=== PATIENT | female | born 1995 | race Caucasian/White ===

== ENCOUNTER → 2017-02-26 | Outpatient (CLI) | payer SELFPAY ==
[~2017-02-26] MED LIST: AMOXICILLIN500 MG PO; AUGMENTIN 875-875 MG PO; BACTRIM DS 8001 TA1 PO; BIAXIN500 MG PO; CLARITIN10 MG PO; COMBIVENT1 ARO IH; DARVOCET N 1001 TAB PO; DELTASONE10 MG PO; DIFLUCAN150 MG PO; FLONASE 0.05% 121 EA NAS; HYDROCODONE BIT1 T11 PO; HYDROCORTISONE30 G2 PO; IBU-8800 MG PO; MEDROL DOSEPAK4 MG PO; MOBIC15 MG PO; MOTRIN600 MG PO; MOTRIN800 MG PO; Motrin,Rufen800 MG PO; NAPROSYN250 MG PO; NKHM; NKHM PO; PHENERGAN W/DM120 ML PO; PNV PRENATAL HE1 TAB PO; PRENATAL1 TA3 PO; PROAIR HFA0.09 MG/AC IH; PYRIDIUM200 MG PO; ROBAXIN750 MG PO; TOBRADEX 0.1%-01 OI1 OP; TRAMADOL HCL50 MG PO; TRIAMCINOLONE AC0.1% T; TYLENOL COLD &1 PDR PO; ULTRAM50 MG PO; ZITHROMAX Z PA250 MG PO; ZOFRAN4 MG; ZOFRAN4 MG PO; ZOVIRAX800 MG PO
== END | disposition home or self-care (01) ==
LOC: RESCLI 02:49
DX: Z13.9 Encounter for screening, unspecified (principal); I10 Essential (primary) hypertension; R00.0 Tachycardia, unspecified; E66.01 Morbid (severe) obesity due to excess calories

== ENCOUNTER 2019-05-02 20:08 | Emergency (ER) | payer OTHER ==
[~2019-05-02] VITALS: Wt 121.4 kg
[2019-05-02 20:11] VITALS: BP 147/85
[2019-05-02 20:25] LABS: BILIRUBIN NEGATIVE (NEGATIVE); BLOOD NEGATIVE (NEGATIVE); CLARITY SL CLOUDY (CLEAR); COLOR YELLOW (YELLOW); GLUCOSE NEGATIVE (NEGATIVE); KETONE NEGATIVE (NEGATIVE); LEUKO ESTERASE NEGATIVE (NEGATIVE); NITRITE NEGATIVE (NEGATIVE); UROBILINOGEN 0.2 E.U./dl (0.2-1.0)
[2019-05-02 20:33] LABS: URINE AMPHETAMINES < 1000 (1000ng/ml); URINE BARBITURATES < 200 (200ng/ml); URINE BENZODIAZEPINES < 200 (200ng/ml); URINE CANNABINOIDS (THC) > 50 (50ng/ml); URINE COCAINE < 300 (300ng/ml); URINE METHADONE < 300 (300ng/ml); URINE OPIATES < 300 (300ng/ml); URINE PHENCYCLIDINE < 25 (25ng/ml)
[2019-05-02 20:36] LABS: EPITHELIAL CELLS 40-45
[2019-05-02 20:37] LABS: BACTERIA TRACE; WBC 0-2 wbc/hpf (0-5)
[2019-05-02 20:40] LABS: BASO % 0.4 % (0.0-1.0); EOS # 0.1 10*3/uL (0.0-0.4); EOS % 1.3 % (1.0-4.0); HEMATOCRIT 40.4 % (37.0-47.0); HEMOGLOBIN 12.6 g/dl (12.0-16.0); LYMPH % 28.4 % (27.0-41.0); MEAN CELL VOLUME 84.3 fl (81.0-99.0); MEAN CORPUSCULAR HGB 26.3 pg (27.0-31.0); MEAN CORPUSCULAR HGB CONC 31.2 g/dl (33.0-37.0); MEAN PLATELET VOLUME 10.4 fl (9.6-12.3); MONO # 0.9 10*3/uL (0.1-1.0); MONO % 8.3 % (3.0-9.0); NEUT # 6.6 10*3/uL (2.3-7.9); NEUT % 61.3 % (47.0-73.0); PLATELET COUNT AUTOMATED 286 10*3/uL (130-400); RED BLOOD COUNT 4.79 10*6/uL (4.10-5.10); RED CELL DISTRI WIDTH 15.5 % (0-14.5); WHITE BLOOD COUNT 10.7 10*3/uL (4.8-10.8)
[2019-05-02 20:55] LABS: ALBUMIN 3.3 gm/dl (3.1-4.5); ALKALINE PHOSPHATASE 71 U/L (45-117); BUN 10 mg/dl (7-24); CHLORIDE 109 mmol/L (98-107); LIPASE 104 U/L (73-393); POTASSIUM 3.7 mmol/L (3.5-5.1); SGOT/AST 15 IU/L (3-35); SGPT/ALT 23 U/L (12-78); SODIUM 140 mmol/L (136-145); TOTAL PROTEIN 7.3 gm/dL (6.4-8.2)
[2019-05-02] MEDS ORDERED: Phenergan25 MG PO (21:28)
== END 2019-05-02 21:31 | disposition home or self-care (01) ==
LOC: ED 20:08
PROVIDERS: Emergency Medicine Emergency Medical Services
DX: O99.611 Diseases of the digestive system complicating pregnancy, first trimester (principal); K52.9 Noninfective gastroenteritis and colitis, unspecified; R42 Dizziness and giddiness; Z3A.00 Weeks of gestation of pregnancy not specified; Z79.899 Other long term (current) drug therapy

== ENCOUNTER 2019-10-10 16:04 | Emergency (ER) | payer OTHER ==
[~2019-10-10] VITALS: Ht 160 cm; Wt 122.5 kg
[2019-10-10 16:04] VITALS: BP 122/63
[~2019-10-10 16:04] MED LIST changes: +Phenergan25 MG PO
[2019-10-10 16:49] LABS: BASO % 0.2 % (0.0-1.0); EOS # 0.2 10*3/uL (0.0-0.4); EOS % 1.9 % (1.0-4.0); HEMATOCRIT 35.9 % (37.0-47.0); HEMOGLOBIN 11.4 g/dl (12.0-16.0); LYMPH # 1.9 10*3/uL (1.3-4.4); LYMPH % 22.8 % (27.0-41.0); MEAN CORPUSCULAR HGB 29.8 pg (27.0-31.0); MEAN CORPUSCULAR HGB CONC 31.8 g/dl (33.0-37.0); MEAN PLATELET VOLUME 11.1 fl (9.6-12.3); MONO % 11.8 % (3.0-9.0); NEUT # 5.2 10*3/uL (2.3-7.9); NEUT % 62.5 % (47.0-73.0); PLATELET COUNT AUTOMATED 219 10*3/uL (130-400); RED BLOOD COUNT 3.82 10*6/uL (4.10-5.10); WHITE BLOOD COUNT 8.3 10*3/uL (4.8-10.8)
[2019-10-10 16:49] LABS: BILIRUBIN NEGATIVE (NEGATIVE); BLOOD NEGATIVE (NEGATIVE); CLARITY CLOUDY (CLEAR); COLOR YELLOW (YELLOW); GLUCOSE NEGATIVE (NEGATIVE); KETONE NEGATIVE (NEGATIVE); LEUKO ESTERASE 1+ (NEGATIVE); NITRITE NEGATIVE (NEGATIVE); SPECIFIC GRAVITY 1.025 (1.005-1.030); UROBILINOGEN 0.2 E.U./dl (0.2-1.0)
[2019-10-10 16:57] LABS: BACTERIA 1+; EPITHELIAL CELLS 21-30
[2019-10-10 17:08] LABS: ALBUMIN 2.6 gm/dl (3.1-4.5); ALKALINE PHOSPHATASE 95 U/L (45-117); BUN 9 mg/dl (7-24); CHLORIDE 111 mmol/L (98-107); CREATININE 0.55 mg/dL (0.55-1.02); LIPASE 124 U/L (73-393); POTASSIUM 3.8 mmol/L (3.5-5.1); SGOT/AST 18 IU/L (3-35); SGPT/ALT 14 U/L (12-78); SODIUM 141 mmol/L (136-145); TOTAL PROTEIN 6.3 gm/dL (6.4-8.2)
[2019-10-10] MEDS ORDERED: PROAIR HFA8.5 GM INH (17:29)
[2019-10-10] MEDS ORDERED: TAMIFLU 75MG CA75 MG PO (17:29)
[2019-10-10] MEDS ORDERED: AMOXICILLIN500 M3 PO (17:29)
== END 2019-10-10 17:40 | disposition home or self-care (01) ==
LOC: ED 16:04
PROVIDERS: Physician Assistant
DX: O98.513 Other viral diseases complicating pregnancy, third trimester (principal); O99.513 Diseases of the respiratory system complicating pregnancy, third trimester; J06.9 Acute upper respiratory infection, unspecified; O23.93 Unspecified genitourinary tract infection in pregnancy, third trimester; O99.333 Smoking (tobacco) complicating pregnancy, third trimester; Z3A.31 31 weeks gestation of pregnancy; Z79.899 Other long term (current) drug therapy

== ENCOUNTER 2019-12-04 22:45 | Inpatient (IN) | payer OTHER ==
[~2019-12-04] VITALS: Ht 160 cm; Wt 125.8 kg
[~2019-12-04 22:45] MED LIST changes: +AMOXICILLIN500 M3 PO; +PROAIR HFA8.5 GM INH; +TAMIFLU 75MG CA75 MG PO
[2019-12-04 22:51] VITALS: BP 142/82
[2019-12-04] MEDS ORDERED: SERTRALINE HYD100 MG PO (23:42)
[2019-12-05] VITALS (9 sets, daily range): BP systolic 99–134; BP diastolic 41–88
[2019-12-05 00:02] LABS: BASO # 0.1 10*3/uL (0.0-0.1); BASO % 0.5 % (0.0-1.0); EOS # 0.2 10*3/uL (0.0-0.4); EOS % 1.8 % (1.0-4.0); HEMATOCRIT 42.9 % (37.0-47.0); HEMOGLOBIN 13.9 g/dl (12.0-16.0); LYMPH # 4.7 10*3/uL (1.3-4.4); LYMPH % 39.7 % (27.0-41.0); MEAN CELL VOLUME 92.1 fl (81.0-99.0); MEAN CORPUSCULAR HGB 29.8 pg (27.0-31.0); MEAN CORPUSCULAR HGB CONC 32.4 g/dl (33.0-37.0); MEAN PLATELET VOLUME 11.2 fl (9.6-12.3); MONO # 0.8 10*3/uL (0.1-1.0); MONO % 6.6 % (3.0-9.0); NEUT % 51.1 % (47.0-73.0); PLATELET COUNT AUTOMATED 340 10*3/uL (130-400); RED BLOOD COUNT 4.66 10*6/uL (4.10-5.10); RED CELL DISTRI WIDTH 13.1 % (0-14.5); WHITE BLOOD COUNT 11.8 10*3/uL (4.8-10.8)
[2019-12-05 00:14] LABS: ALBUMIN 3.4 gm/dl (3.1-4.5); ALKALINE PHOSPHATASE 86 U/L (45-117); BUN 10 mg/dl (7-24); CHLORIDE 109 mmol/L (98-107); CREATININE 0.87 mg/dL (0.55-1.02); POTASSIUM 3.7 mmol/L (3.5-5.1); SGOT/AST 14 IU/L (3-35); SGPT/ALT 25 U/L (12-78); SODIUM 139 mmol/L (136-145); TOTAL PROTEIN 7.2 gm/dL (6.4-8.2)
--- NOTE | 2019-12-05 03:43 | NUR ---
INFUSION OF CLEOCIN INITIATED.NS CONTINUES TO INFUSEL.PT REQUESTING TO GO OUTSIDE TO SMOKE.PT ADVISED THIS IS NON SMOKING FACILITY AND SHE CANNOT LEAVE UNIT WITH IV.PT PROVIDED NICODERM PATCH ON LEFT UPPER ARM.
--- NOTE | 2019-12-05 03:45 | NUR ---
PT PROVIDED PERIPAD.
--- NOTE | 2019-12-05 04:13 | NUR ---
PHOTO TAKEN OF CELLULITIS/ABSCESS ON ABDOMEN.
--- NOTE | 2019-12-05 04:22 | NUR ---
MD GAMBINO CALLED AND STATES SHE PLACED CONSULT FOR DR GUILLORY AND ADVISES TO WAIT UNTIL AM SHIFT TO CONTACT DR GUILLORY.
--- NOTE | 2019-12-05 04:43 | NUR ---
INFUSION OF NS AND CLEOCIN COMPLETED.
--- NOTE | 2019-12-05 04:52 | NUR ---
INFUSION OF ZOSYN INITIATED.PT UPDATED ON CURRENT PLAN OF CARE.PT ADVISED SHE IS CURRENTLY UNABLE TO HAVE FOOD OR DRINK AT THIS TIME.
--- NOTE | 2019-12-05 07:15 | NUR ---
DR GUILLORY AWARE OF PT CONSULT.
--- NOTE | 2019-12-05 07:52 | NUR ---
PROVIDED SMOKELESS TOBACCO PEN REQUESTED.
--- NOTE | 2019-12-05 08:20 | NUR ---
VISITING WITH SPOUSE AND IN ROOM.
--- NOTE | 2019-12-05 09:08 | NUR ---
CUDDLING IN BED.
--- NOTE | 2019-12-05 09:35 | NUR ---
MED REC UPDATED, PT STATES SHE ONLY TAKES ZOLOFT.
--- NOTE | 2019-12-05 09:47 | NUR ---
INSTRUCTED TO PROVIDED URINE SPECIMIN FOR TEST.
--- NOTE | 2019-12-05 10:59 | NUR ---
Time: 1044 A 24 year old FEMALE admitted to 5E under services of YAAKOV CAMPBELL DO. Pt. arrived via wheel chair from ER. Chief complaint: ABCESS OR CELLULITS OF UMBILLICUS. STACY HOPE
--- NOTE | 2019-12-05 20:00 | NUR ---
AAOX3 SITTING UP IN BED. IV ANTIBIOTIC INFUSING AT THIS TIME. PT. REQUESTING PAIN MEDICATION; INFORMED PATIENT THAT IT WAS TOO SOON. PT. VERBALIZED UNDERSTANDING. CALL LIGHT WITHIN REACH.
--- NOTE | 2019-12-05 21:26 | NUR ---
MEDICATED WITH NORCO FOR C/O ABDOMINAL PAIN.
--- NOTE | 2019-12-05 22:12 | NUR ---
MEDICATED WITH RESTORIL FOR C/O INSOMNIA.
[2019-12-06] VITALS: BP 115/55
--- NOTE | 2019-12-06 | NUR ---
PT. APPEARS TO BE SLEEPING; MEDICATION EFFECTIVE.
[2019-12-06 06:50] LABS: BASO % 0.3 % (0.0-1.0); EOS % 0.1 % (1.0-4.0); HEMATOCRIT 42.8 % (37.0-47.0); HEMOGLOBIN 13.6 g/dl (12.0-16.0); LYMPH # 1.9 10*3/uL (1.3-4.4); MEAN CELL VOLUME 94.3 fl (81.0-99.0); MEAN CORPUSCULAR HGB CONC 31.8 g/dl (33.0-37.0); MEAN PLATELET VOLUME 11.9 fl (9.6-12.3); MONO # 0.6 10*3/uL (0.1-1.0); MONO % 5.9 % (3.0-9.0); NEUT # 8.3 10*3/uL (2.3-7.9); NEUT % 76.2 % (47.0-73.0); PLATELET COUNT AUTOMATED 333 10*3/uL (130-400); RED BLOOD COUNT 4.54 10*6/uL (4.10-5.10); WHITE BLOOD COUNT 10.9 10*3/uL (4.8-10.8)
[2019-12-06 07:19] LABS: BUN 15 mg/dl (7-24); CHLORIDE 110 mmol/L (98-107); CHOLESTEROL 204 mg/dL (<200); CREATININE 0.76 mg/dL (0.55-1.02); FREE T4 0.84 ng/dl (0.76-1.46); HDL CHOLESTEROL 51 mg/dl (40-60); LDL CHOLESTEROL 107 mg/dL (9-159); POTASSIUM 4.1 mmol/L (3.5-5.1); SODIUM 143 mmol/L (136-145); TRIGLYCERIDES 229 mg/dl (<150); VLDL CHOLESTEROL 46 mg/dL (6-40)
[2019-12-06 07:27] LABS: INTERNATIONAL NORM RATIO 0.9 (2.0-3.5); THYROID STIM HORMONE (HS) 0.431 uIU/ml (0.358-4.75)
[2019-12-06 07:53] LABS: VITAMIN D, 25-HYDROXY 22.1 ng/mL (30-100)
[2019-12-06 08:00] VITALS: BP 130/76
--- NOTE | 2019-12-06 08:00 | NUR ---
Stranding Machine Operator Helper in to talk to patient. Patient states lives at home with her children. There are [address] in the home. Physician: [facility] Home health services: none Patient's level of ADLs: INDEPENDENT Patient has working utilities: yes DME: none Follow-up physician's appointment after d/c: will be made by the hospitalist nurse director upon discharge Does patient want to access PORTAL?: no Discharge plan discussed with patient. She lives at home with her children. She lives on the 4th floor. She is independent in her ADLs and ambulation. Discussed home health care services and she denies any home needs at this time. When medically stable she will be discharged to home. She states her boyfriend will provide transportation on discharge. HERVE SHERIDAN
--- NOTE | 2019-12-06 08:05 | NUR ---
PT MEDICATED WITH PO NORCO PER PRN ORDER FOR C/O ABD PAIN. RATES PAIN /. WILL MONITOR EFFECTIVENESS. DRESSING D/I TO ABDOMINAL INCISION. WILL MONITOR. IV VANC INFUSING PER ORDER.
--- NOTE | 2019-12-06 09:24 | NUR ---
IN TO SEE PATIENT.
--- NOTE | 2019-12-06 10:04 | NUR ---
NORCO EFFECTIVE AT THIS TIME.
[2019-12-06] MEDS ORDERED: DOXYCYCLINE100 M3 PO (10:40)
[2019-12-06] MEDS ORDERED: HYDROCODONE-AC1 EAC1 PO (10:41)
--- NOTE | 2019-12-06 12:19 | NUR ---
DISCHARGE PHOTO OBTAINED PER POLICY.
--- NOTE | 2019-12-06 12:20 | NUR ---
Discharge instructions reviewed with patient/family. Patient receptive and verbalizes understanding. Follow-up care arranged. Written instructions given to patient/family. TENZIN ROMAN.
== END 2019-12-06 12:20 | disposition home or self-care (01) | DRG 228 ==
LOC: ED 22:45 → EDHOLD 12-05 03:23 → 5E 12-05 03:23
PROVIDERS: Internal Medicine; Nurse Practitioner Family; ADMIT Internal Medicine
PROC: 0WQF0ZZ Repair Abdominal Wall, Open Approach (ICD-10-PCS; principal; 2019-12-05)
PROC: 0W9F0ZZ Drainage of Abdominal Wall, Open Approach (ICD-10-PCS; 2019-12-05)
DX: K42.0 Umbilical hernia with obstruction, without gangrene (principal); F17.210 Nicotine dependence, cigarettes, uncomplicated; E66.09 Other obesity due to excess calories; F41.9 Anxiety disorder, unspecified; L03.316 Cellulitis of umbilicus; L02.216 Cutaneous abscess of umbilicus; Z71.6 Tobacco abuse counseling; Z68.42 Body mass index [BMI] 45.0-49.9, adult

== ENCOUNTER 2020-03-29 18:47 | Emergency (ER) | payer OTHER ==
[~2020-03-29] VITALS: Ht 160 cm; Wt 122.9 kg
[~2020-03-29 18:47] MED LIST changes: +DOXYCYCLINE100 M3 PO; +HYDROCODONE-AC1 EAC1 PO; +SERTRALINE HYD100 MG PO
[2020-03-29] MEDS ORDERED: CEPHALEXIN500 M1 PO (19:52)
== END 2020-03-29 19:56 | disposition home or self-care (01) ==
LOC: ED 18:47
DX: L02.211 Cutaneous abscess of abdominal wall (principal)

== ENCOUNTER 2020-09-23 20:13 | Emergency (ER) | payer OTHER ==
[~2020-09-23] VITALS: Ht 160 cm; Wt 113.4 kg
[~2020-09-23 20:13] MED LIST changes: +CEPHALEXIN500 M1 PO
[2020-09-23 20:23] VITALS: BP 127/65
[2020-09-23 21:34] LABS: BASO % 0.3 % (0.0-1.0); EOS # 0.2 10*3/uL (0.0-0.4); EOS % 2.1 % (1.0-4.0); LYMPH % 38.6 % (27.0-41.0); MEAN CELL VOLUME 88.6 fl (81.0-99.0); MEAN CORPUSCULAR HGB 28.3 pg (27.0-31.0); MEAN CORPUSCULAR HGB CONC 31.9 g/dl (33.0-37.0); MEAN PLATELET VOLUME 10.6 fl (9.6-12.3); MONO # 0.6 10*3/uL (0.1-1.0); MONO % 8.3 % (3.0-9.0); NEUT # 3.9 10*3/uL (2.3-7.9); NEUT % 50.4 % (47.0-73.0); PLATELET COUNT AUTOMATED 257 10*3/uL (130-400); RED BLOOD COUNT 4.74 10*6/uL (4.10-5.10); RED CELL DISTRI WIDTH 13.8 % (0-14.5); WHITE BLOOD COUNT 7.8 10*3/uL (4.8-10.8)
[2020-09-23 21:49] LABS: ALBUMIN 3.3 gm/dl (3.1-4.5); ALKALINE PHOSPHATASE 75 U/L (45-117); BUN 12 mg/dl (7-24); CHLORIDE 108 mmol/L (98-107); POTASSIUM 3.4 mmol/L (3.5-5.1); SGOT/AST 15 IU/L (3-35); SGPT/ALT 32 U/L (12-78); SODIUM 143 mmol/L (136-145); TOTAL PROTEIN 6.6 gm/dL (6.4-8.2)
[2020-09-23 21:56] LABS: BILIRUBIN Negative (Negative); BLOOD Negative (Negative); CLARITY Cloudy (Clear); COLOR Yellow (Yellow); GLUCOSE Negative (Negative); KETONE Negative (Negative); LEUKO ESTERASE Trace (Negative); NITRITE Negative (Negative); SPECIFIC GRAVITY 1.025 (1.001-1.030)
[2020-09-23 22:13] LABS: BACTERIA TRACE; EPITHELIAL CELLS 0-2; WBC 0-2 wbc/hpf (0-5)
[2020-09-23] MEDS ORDERED: ZOFRAN4 MG PO (22:30)
== END 2020-09-23 22:40 | disposition home or self-care (01) ==
LOC: ED 20:13
PROVIDERS: Internal Medicine
DX: B34.9 Viral infection, unspecified (principal); Z79.899 Other long term (current) drug therapy

== ENCOUNTER → 2020-10-21 | Outpatient (CLI) | payer OTHER | END | disposition home or self-care (01) | LOC: COVID19 15:26 | PROVIDERS: ATTEND Nurse Practitioner Family | DX: U07.1 COVID-19 (principal) ==

== ENCOUNTER 2020-12-11 20:01 | Emergency (ER) | payer OTHER ==
[~2020-12-11] VITALS: Ht 160 cm; Wt 122.5 kg
[2020-12-11 20:08] VITALS: BP 101/80
[2020-12-11] MEDS ORDERED: CLINDAMYCIN HC300 MG PO (21:23)
== END 2020-12-11 21:45 | disposition home or self-care (01) ==
LOC: ED 20:01
DX: L02.511 Cutaneous abscess of right hand (principal); I10 Essential (primary) hypertension; F17.200 Nicotine dependence, unspecified, uncomplicated

== ENCOUNTER → 2021-08-31 | Outpatient (CLI) | payer OTHER ==
[~2021-08-31] MED LIST changes: +CLINDAMYCIN HC300 MG PO
== END | disposition home or self-care (01) ==
LOC: RAD 10:55
PROVIDERS: ATTEND Nurse Practitioner Family
DX: R05.9 Cough, unspecified (principal); R06.2 Wheezing; R53.83 Other fatigue; R00.0 Tachycardia, unspecified; Z72.0 Tobacco use

== ENCOUNTER → 2023-03-27 | Outpatient (CLI) | payer OTHER ==
[2023-03-27 13:23] LABS: BASO % 0.5 % (0.0-1.0); EOS # 0.2 10*3/uL (0.0-0.4); EOS % 2.4 % (1.0-4.0); HEMATOCRIT 44.6 % (37.0-47.0); LYMPH # 2.3 10*3/uL (1.3-4.4); LYMPH % 28.9 % (27.0-41.0); MEAN CELL VOLUME 92.3 fl (81.0-99.0); MEAN CORPUSCULAR HGB 30.6 pg (27.0-31.0); MEAN CORPUSCULAR HGB CONC 33.2 g/dl (33.0-37.0); MEAN PLATELET VOLUME 10.5 fl (9.6-12.3); MONO # 0.6 10*3/uL (0.1-1.0); MONO % 7.5 % (3.0-9.0); NEUT # 4.8 10*3/uL (2.3-7.9); NEUT % 60.4 % (47.0-73.0); PLATELET COUNT AUTOMATED 303 10*3/uL (130-400); RED BLOOD COUNT 4.83 10*6/uL (4.10-5.10); RED CELL DISTRI WIDTH 13.1 % (0-14.5); WHITE BLOOD COUNT 7.9 10*3/uL (4.8-10.8)
[2023-03-27 13:59] LABS: ALKALINE PHOSPHATASE 63 U/L (46-116); BUN 10 mg/dl (9-23); CHLORIDE 106 mmol/L (98-107); CHOLESTEROL 119 mg/dL (<200); LDL CHOLESTEROL 69 mg/dL (9-159); POTASSIUM 3.6 mmol/L (3.4-5.1); SGPT/ALT 19 U/L (10-49); TRIGLYCERIDES 66 mg/dl (<150)
[2023-03-27 14:01] LABS: VITAMIN D, 25-HYDROXY 37.1 ng/mL (30-100)
== END | disposition home or self-care (01) ==
LOC: LAB 12:52
PROVIDERS: ATTEND Student in an Organized Health Care Education/Training Program
DX: E66.01 Morbid (severe) obesity due to excess calories (principal)